=== PATIENT | female | born 1990 ===

== ENCOUNTER 2018-01-17 18:13 | Emergency (ER) | payer MEDICAID ==
[~2018-01-17] VITALS: Ht 157.5 cm; Wt 77.0 kg
[~2018-01-17 18:13] MED LIST: CEPH-571 PO
[2018-01-17 18:50] LABS: BASOPHILS % (AUTO) 0 % (0-1); EOSINOPHILS % (AUTO) 0 % (0-6); HEMATOCRIT 34.2 % (35.0-45.0); HEMOGLOBIN 11.6 g/dl (12.0-16.0); LYMPHOCYTES % (AUTO) 12.5 % (21-51); MEAN CORPUSCULAR HGB CONC 33.9 % (33.0-36.5); MEAN CORPUSCULAR VOLUME 79.6 FL (78-98); MEAN PLATELET VOLUME 9.3 FL (7.4-10.4); MONOCYTES # (AUTO) 0.1 X10'3 (0-0.9); MONOCYTES % (AUTO) 1.2 % (2-12); NEUTROPHILS # (AUTO) 6.9 X10'3 (1.8-7.7); NEUTROPHILS % (AUTO) 86.3 % (42-75); PLATELET COUNT 304 X10'3 (140-440); RED CELL DISTRIBUTION WIDTH 14.6 % (11.5-14.5)
[2018-01-17 19:05] LABS: ALANINE AMINOTRANSFERASE 26 U/L (12-78); ALBUMIN 3.9 G/DL (3.4-5.0); ALBUMIN/GLOBULIN RATIO 0.9 (1.1-1.5); ALKALINE PHOSPHATASE 67 IU/L (46-116); ANION GAP 14 (8-16); ASPARTATE AMINO TRANSFERASE 14 U/L (10-37); BILIRUBIN,TOTAL 0.2 MG/DL (0.1-1.0); BLOOD UREA NITROGEN 12 MG/DL (7-18); BUN/CREATININE RATIO 12.4 (6.6-38.0); CALCIUM 9.4 MG/DL (8.5-10.1); CHLORIDE 106 MMOL/L (99-107); CREATININE 0.97 MG/DL (0.40-0.90); GLUCOSE 122 MG/DL (70-104); POTASSIUM 3.2 MMOL/L (3.5-5.1); SODIUM 142 MMOL/L (135-145); TOTAL CARBON DIOXIDE 21.6 MMOL/L (24-32); TOTAL PROTEIN 8.2 G/DL (6.4-8.2); eGFR 68 ML/MIN
[2018-01-17] MEDS ORDERED: potassium Cl 20 mEq SR tablet PO ONE (19:10)
[2018-01-17] MEDS ORDERED: albuterol 2.5 MG/3 ML nebule NEB ONE (19:10)
[2018-01-17] MEDS ORDERED: normal saline 1000ml 1,000 ML IV ONE (19:10)
[2018-01-17] MEDS ORDERED: levoFLOXACIN-Levaquin 500mg/D5 100 ML IV ONE (19:10)
[2018-01-17] MEDS ORDERED: LEVO500T89 PO (20:07)
[2018-01-17] MEDS ORDERED: GUAI120L55 PO (20:07)
[2018-01-17 20:44] VITALS: BP 113/64
== END 2018-01-17 20:46 | disposition home or self-care (01) ==
LOC: ER 18:14
DX: E86.0 Dehydration (principal); J20.9 Acute bronchitis, unspecified; B96.89 Other specified bacterial agents as the cause of diseases classified elsewhere; R00.0 Tachycardia, unspecified; Z79.899 Other long term (current) drug therapy
CPT/HCPCS: 36415; 71046; 80053; 85025; 93005; 94640; 94760; 96365; 99285; J1956; J7030

== ENCOUNTER 2018-02-26 06:05 | Emergency (ER) | payer MEDICAID ==
[~2018-02-26] VITALS: Ht 157.5 cm; Wt 78.6 kg
[~2018-02-26 06:05] MED LIST changes: +GUAI120L55 PO
[2018-02-26 06:14] VITALS: BP 115/83
[2018-02-26] MEDS ORDERED: dexamethasone 4mg tablet PO ONE (06:50)
[2018-02-26] MEDS ORDERED: AMOX-580 PO (06:51)
[2018-02-26] MEDS ORDERED: PRED5TAB PO (06:51)
== END 2018-02-26 07:08 | disposition home or self-care (01) ==
LOC: ER 06:05
DX: J01.00 Acute maxillary sinusitis, unspecified (principal); J02.9 Acute pharyngitis, unspecified; J20.9 Acute bronchitis, unspecified; Z79.899 Other long term (current) drug therapy
CPT/HCPCS: 99283; J8540